=== PATIENT | male | born 1980 | race Caucasian/White ===

== ENCOUNTER 2023-11-09 09:17 | Emergency (ER) | payer MEDICAID, BC ==
[~2023-11-09] VITALS: Ht 185.4 cm; Wt 79.4 kg
[2023-11-09 09:27] VITALS: O2SAT 97
[2023-11-09] MEDS ORDERED: [UNRECOGNIZED DRUG - CODE] * (10:27)
[2023-11-09] MEDS ORDERED: INSNOV SUBCUT (10:27)
[2023-11-09] MEDS ORDERED: INSU100I28 SQ (10:27)
[2023-11-09] MEDS ORDERED: BLOO-1810 MC (10:27)
[2023-11-09 10:53] VITALS: BP 116/78; PULSE 85; RESP 16; TEMP 98
== END 2023-11-09 10:54 | disposition home or self-care (01) ==
LOC: ER 09:17
DX: E11.9 Type 2 diabetes mellitus without complications (principal); Z76.0 Encounter for issue of repeat prescription
CPT/HCPCS: 99281